=== PATIENT | female | born 1970 | race Two or more races ===

== ENCOUNTER 2020-08-03 12:30 | Inpatient (IN) | payer OTHER ==
[~2020-08-03] VITALS: Ht 157.5 cm; Wt 83.9 kg
[~2020-08-03 12:30] MED LIST: ENALAPRIL MALE2.5 MG PO; FLEXERIL10 MG PO; KETO10TA2 PO
[2020-08-03] MEDS ORDERED: SYNTHROID112 MCG PO (15:25)
[2020-08-03] MEDS ORDERED: SYNTHROID100 MCG PO (15:25)
[2020-08-03] MEDS ORDERED: MAXIMUM D3325 MCG PO (15:26)
[2020-08-03] MEDS ORDERED: ZESTRIL20 MG PO (15:26)
[2020-08-03] MEDS ORDERED: METFORMIN HCL500 M3 PO (15:26)
[2020-08-03] MEDS ORDERED: B-12500 MCG PO (15:27)
[2020-08-09] MEDS ORDERED: NEURONTIN600 MG PO (06:50)
[2020-08-09] MEDS ORDERED: POLY119PG PO (06:50)
[2020-08-09] MEDS ORDERED: IBUPROFEN800 MG PO (06:50)
[2020-08-09] MEDS ORDERED: DUI500 PO (06:51)
[2020-08-09] MEDS ORDERED: SIMETHICONE125 M1 PO (06:51)
== END 2020-08-09 10:15 | disposition home or self-care (01) | DRG 743 ==
LOC: OB/GYN 08-06 05:20 → O/R 08-06 05:20 → OB/GYN 08-06 10:44
PROVIDERS: ADMIT Obstetrics & Gynecology; ATTEND Obstetrics & Gynecology
PROC: 0UB70ZZ Excision of Bilateral Fallopian Tubes, Open Approach (ICD-10-PCS; 2020-08-06)
PROC: 0UT90ZZ Resection of Uterus, Open Approach (ICD-10-PCS; principal; 2020-08-06 05:45)
DX: D25.1 Intramural leiomyoma of uterus (principal); D25.2 Subserosal leiomyoma of uterus; N72 Inflammatory disease of cervix uteri